=== PATIENT | male | born 1990 | race Caucasian/White ===

== ENCOUNTER 2020-03-12 10:42 | Emergency (ER) | payer MEDICAID ==
[~2020-03-12] VITALS: Ht 170.2 cm; Wt 104.3 kg
[2020-03-12 10:49] VITALS: Ht 170.2 cm; Wt 104.3 kg
[2020-03-12 12:18] VITALS: BP 118/72
== END 2020-03-12 12:18 | disposition home or self-care (01) ==
LOC: ED 10:42
DX: R07.89 Other chest pain (principal); I10 Essential (primary) hypertension; R00.2 Palpitations

== ENCOUNTER 2020-03-20 13:35 | Emergency (ER) | payer MEDICAID ==
[~2020-03-20] VITALS: Ht 172.7 cm; Wt 103.4 kg
[2020-03-20 14:12] VITALS: Ht 172.7 cm; Wt 103.4 kg
[2020-03-20 14:46] VITALS: BP 119/78
== END 2020-03-20 14:46 | disposition home or self-care (01) ==
LOC: ED 13:35
DX: G44.209 Tension-type headache, unspecified, not intractable (principal); I10 Essential (primary) hypertension

== ENCOUNTER 2020-04-03 22:11 | Emergency (ER) | payer MEDICAID ==
[~2020-04-03] VITALS: Ht 172.7 cm; Wt 101.6 kg
[2020-04-03 22:21] VITALS: Ht 172.7 cm; Wt 101.6 kg
[2020-04-03 23:02] LABS: BASOPHIL % 0.5 % (0-2); PLATELET COUNT 225 x10^3mcL (130-400); RED CELL DISTRIBUTION WIDTH 12.1 % (11.5-14.5)
[2020-04-03 23:16] LABS: CALCIUM 9.4 mg/dL (8.5-10.1); CARBON DIOXIDE 29.5 mmol/L (21-32); CHLORIDE SERUM 106 mmol/L (98-107); CREATININE SERUM 0.9 mg/dL (0.7-1.3); GFR1 > 60 mL/min; GLUCOSE SERUM 86 mg/dL (74-106); POTASSIUM SERUM 3.8 mmol/L (3.5-5.1); SODIUM SERUM 141 mmol/L (136-145)
[2020-04-03 23:21] LABS: ALBUMIN 4.3 g/dL (3.4-5.0); ALKALINE PHOSPHATASE 108 U/L (46-116); ALT/SGPT 62 U/L (16-63); AST/SGOT 23 U/L (15-37); BILIRUBIN TOTAL 0.5 mg/dL (0.20-1.00)
[2020-04-04 01:31] VITALS: BP 125/83
== END 2020-04-04 01:25 | disposition home or self-care (01) ==
LOC: ED 22:11
PROVIDERS: Emergency Medicine
DX: F41.9 Anxiety disorder, unspecified (principal); I10 Essential (primary) hypertension

== ENCOUNTER 2020-04-17 19:13 | Emergency (ER) | payer MEDICAID ==
[~2020-04-17] VITALS: Ht 170.2 cm; Wt 102.7 kg
[2020-04-17 19:39] VITALS: BP 123/89; Ht 170.2 cm; Wt 102.7 kg
== END 2020-04-17 22:50 | disposition home or self-care (01) ==
LOC: ED 19:13
DX: F41.9 Anxiety disorder, unspecified (principal); I10 Essential (primary) hypertension